=== PATIENT | male | born 1995 | race African-American/Black ===

== ENCOUNTER 2018-04-06 05:29 | Day surgery (SDC) | payer OTHER ==
[~2018-04-06] VITALS: Ht 172.7 cm; Wt 86.2 kg
[2018-04-06 05:59] VITALS: BP 132/79
[2018-04-06 09:15] VITALS: BP 115/73
[2018-04-06 10:09] VITALS: BP 123/58
[2018-04-06 10:53] VITALS: BP 128/63
[2018-04-06] MEDS ORDERED: ULTRAM50 MG PO (10:53)
== END 2018-04-06 11:05 | disposition home or self-care (01) ==
LOC: SDC 05:29
PROC: 0D5Q7ZZ Destruction of Anus, Via Natural or Artificial Opening (ICD-10-PCS; principal; 2018-04-06)
PROC: 0DJD7ZZ Inspection of Lower Intestinal Tract, Via Natural or Artificial Opening (ICD-10-PCS; principal; 2018-04-06)
DX: A63.0 Anogenital (venereal) warts (principal); J45.20 Mild intermittent asthma, uncomplicated; Z88.0 Allergy status to penicillin
CPT/HCPCS: J0690; J1100; J1885; J2250; J2405; J3010; J7643